=== PATIENT | male | born 1960 | race Caucasian/White ===

== ENCOUNTER 2017-11-29 05:03 | Emergency (ER) | payer BC ==
[~2017-11-29] VITALS: Ht 175.3 cm; Wt 128.8 kg
[~2017-11-29 05:03] MED LIST: ASPIRIN81 M2 PO; BACTRIM,SEPT1 TABLET PO; BENICAR20 MG PO; BENTYL10 MG PO; DILAUDID2 MG PO; HUMULIN R500 UNITS/ SC; NASONEX17 GM BOTH NARES; OSTEO BI-FLEX1 EAC1 PO; PERCOCET 5/31 TABLET PO; PRAVASTATIN SOD20 MG PO; TORADOL10 MG PO; VALIUM5 MG PO; VITAMIN D5000 INTUN PO; ZOLOFT50 MG PO; ZYRTEC10 M2 PO
[2017-11-29 06:16] LABS: HEMATOCRIT 36.5 % (38.0-50.0); HEMOGLOBIN 12.3 G/DL (12.5-16.6); MCH 28.3 PG (29.0-34.0); MCHC 33.7 G/DL (30.0-36.0); MCV 83.9 FL (86-99); PLATELET COUNT 166 K/uL (156-360); RBC DIS.WIDTH-CV 12.5 % (11.8-14.6); RBC DIS.WIDTH-SD 38.3 % (39-53); RED BLOOD COUNT 4.35 M/uL (4.00-5.50); WHITE BLOOD COUNT 5.5 K/uL (4.1-10.2)
[2017-11-29 06:25] LABS: INTER. NORMALIZED RATIO 1.1
[2017-11-29 07:22] LABS: ALBUMIN 3.7 G/DL (3.2-4.8); ALKALINE PHOSPHATASE 63 IU/L (3-129); ALT (GPT) 33 IU/L (3-49); AST (GOT) 22 IU/L (2-34); CHLORIDE 106 MEQ/L (99-109); CREATININE 0.7 MG/DL (0.6-1.3); GFR ESTIMATE (CALCULATED) > 59 mL/min/ (58.99-99999); GLUCOSE 227 mg/dL (70-99); LIPASE 18 U/L (1.0-51.0); POTASSIUM 3.7 MEQ/L (3.7-5.4); SODIUM 140 MEQ/L (136-147); TOTAL BILIRUBIN 0.4 MG/DL (0.0-1.0); TOTAL PROTEIN 5.8 G/DL (6.4-8.3); UREA NITROGEN (BUN) 11 mg/dL (9-23)
[2017-11-29 08:53] VITALS: BP 134/98
== END 2017-11-29 09:29 | disposition home or self-care (01) ==
LOC: EME 05:03
PROVIDERS: Emergency Medicine
DX: R51 Headache (principal); I10 Essential (primary) hypertension; E11.65 Type 2 diabetes mellitus with hyperglycemia; E78.5 Hyperlipidemia, unspecified; J45.909 Unspecified asthma, uncomplicated; K21.9 Gastro-esophageal reflux disease without esophagitis; F32.9 Major depressive disorder, single episode, unspecified; F41.9 Anxiety disorder, unspecified; Z87.442 Personal history of urinary calculi; Z98.84 Bariatric surgery status; Z88.8 Allergy status to other drugs, medicaments and biological substances; Z88.5 Allergy status to narcotic agent; Z88.6 Allergy status to analgesic agent
CPT/HCPCS: 70450; 70496; 80047; 80053; 82948; 83690; 85027; 85610; 85730; 99281; 99285; J0780; J1200; J1885; J7030